=== PATIENT | male | born 1940 | race Caucasian/White ===

== ENCOUNTER 2019-09-29 15:10 | Emergency (ER) | payer OTHER, MEDICARE ==
[~2019-09-29] VITALS: Ht 172.7 cm; Wt 77.6 kg
[~2019-09-29 15:10] MED LIST: ACYC800 PO; AMLO10 PO; ATRO1SO; CHLO25B PO; CODBUTASA; CYCL0.05OP OP; CYCL10; DIAZ5 PO; DOCU100 PO; GABA300 PO; HYDACE10B PO; IMIP50; LEVSOD100; LISI20; LORA1; LOSA50 PO; METCAR750 PO; METO10; METO100ER PO; MORP15ER PO; NIFE10; NITR.4SL; OMEP20ER; OXYB5; PYRI100 PO; RANI150 PO; SENN187 PO; SIMV20; SIMV5 PO; SPIR25 PO; SUCR1 PO; TERA5 PO; TESTTP TOP; TRAM50
== END 2019-09-29 15:43 | disposition short-term general hospital (02) ==
LOC: ER 15:10
DX: N50.811 Right testicular pain (principal); Z88.2 Allergy status to sulfonamides; Z88.6 Allergy status to analgesic agent; Z88.5 Allergy status to narcotic agent; Z88.8 Allergy status to other drugs, medicaments and biological substances
CPT/HCPCS: 99285